=== PATIENT | female | born 1950 | race African-American/Black ===

== ENCOUNTER 2025-04-23 20:28 | Emergency (ER) | payer OTHER ==
[2025-04-23 21:42] LABS: Absolute Lymphocytes (CBC) 1.6 K/uL (0.7-4.9); Hematocrit 38.5 % (36.0-45.0); Hemoglobin 13.2 g/dL (12.0-15.0); MCH 31.4 pg (27.0-35.0); MCHC 34.2 g/dL (32.0-36.0); MCV 91.9 fL (80-100); MPV 8.4 fL (7.6-11.3); Nucleated RBC Absolute Count 0.0 (0-0); Nucleated Red Blood Cells % 0.1 % (0-0); RBC Red Blood Cell Count 4.19 M/uL (3.86-4.86); White Blood Count 3.40 thou/uL (4.3-10.9)
--- NOTE | 2025-04-23 21:56 | RAD REPORT ---
EXAM: CT brain without contrast HISTORY: Headache, vertigo COMPARISON: None TECHNIQUE: Multiple contiguous axial images were obtained and a CT of the brain without contrast. Sag ittal and coronal reformats were performed. One or more of the following dose reduction techniques were used: Automated exposure control, adjust ment of the mA and/or kV according to patient size, and/or iterative reconstruction. FINDINGS: No evidence of hydrocephalus, intracranial hemorrhage, or extra-axial fluid collection. Mild brain atrophy with mild periventricular and deep white matter chronic microvascular ischemic ch anges present. No evidence of midline shift or areas of brain edema. The calvarium is intact. Mild fluid is seen in the inferior left mastoid air cell. Paranasal sinuses and mastoids are otherwise clear. IMPRESSION: No evidence of acute intracranial abnormality.
[2025-04-23 22:04] LABS: ALT/SGPT 20.0 U/L (13-56); AST/SGOT 16.0 U/L (15-37); Albumin 3.3 g/dL (3.4-5.0); Albumin/Globulin Ratio 0.9 (1.1-1.8); Alkaline Phosphatase 106.0 U/L (45-117); Anion Gap 7.7 mEq/L (5.0-15.0); BUN Blood Urea Nitrogen 14.0 mg/dL (7-18); Globulin 3.6 g/dL (2.3-3.5); Glucose Level 159.0 mg/dL (74-106); Potassium 3.7 mEq/L (3.5-5.1)
--- NOTE | 2025-04-23 22:23 | EDPHYS ---
Physician Documentation [facility] Name: Elle Harris Age: 74 yrs Sex: Female : 1950 Arrival Date: 04/23/2025 Time: 20:28 Bed 14 Private MD: ED Physician Vik Correa HPI: 04/23 21:56 This 74 yrs old Black Female presents to ER via Wheelchair with complaints of Eye sp4 Problem. 23:27 74-year-old female presents with worsening vertigo. Patient states that she has sp4 developed moderate to severe vertigo in September 2024. Since then she has had complete workup by her neurologist including MRI of the brain that did not reveal any anomalies. Patient has history of relapsing remitting multiple sclerosis for which she is following with her neurologist. Patient takes meclizine 25 mg as needed every 8 hours. Patient states on meclizine wears vertigo becomes worse. Patient presents from the [facility] today for further evaluation of worsening vertigo. Patient states vertigo much worse when she changes positions.. Historical: - Allergies: 20:51 Percocet; kd3 20:51 codeine sulfate; kd3 20:51 Iodine; kd3 20:51 NSAIDS; kd3 20:51 fentanyl; kd3 20:51 Versed; kd3 20:51 anestesia- all except propofol; kd3 - Home Meds: 20:51 amlodipine 2.5 mg tablet 1 tab twice a day [Active]; Vitamin D Oral daily [Active]; kd3 Zioptan (PF) 0.0015 % ophthalmic (eye) Dropperette 1 drop daily [Active]; Cosopt 22.3-6.8 mg/mL Opht drops 1 drop daily [Active]; Vitamin B-6 Oral daily [Active]; Vitamin B-12 oral daily [Active]; Zinc Sulfate Oral daily [Active]; - Immunization history:: Adult Immunizations up to date. - Infectious Disease History:: Denies. - Social history:: Smoking status: Patient denies any tobacco usage or history of. - Family history:: not pertinent. ROS: 23:27 Constitutional: Negative for fever, chills, and weight loss, positive worsening sp4 positional vertigo 23:27 All other systems are negative, Exam: 23:27 Constitutional: This is a well developed, well nourished patient who is awake, alert, sp4 and in no acute distress. Head/Face: Normocephalic, atraumatic. Eyes: Pupils equal round and reactive to light, extra-ocular motions intact. Lids and lashes normal. Conjunctiva and sclera are not injected. Cornea within normal limits. Periorbital areas with no swelling, redness, or edema. Mild horizontal nystagmus, bilateral funduscopy reveals no signs of acute papilledema. ENT: Nares patent. No nasal discharge, no septal abnormalities noted. Tympanic membranes are normal and external auditory canals are clear. Oropharynx with no redness, swelling, or masses, exudates, or evidence of obstruction, uvula midline. Mucous membranes moist. Neck: Trachea midline, no thyromegaly or masses palpated, and no cervical lymphadenopathy. Supple, full range of motion without nuchal rigidity, or vertebral point tenderness. Chest/axilla: Normal chest wall appearance and motion. Nontender with no deformity. No lesions are appreciated. Cardiovascular: Regular rate and rhythm with a normal S1 and S2. No gallops, murmurs, or rubs. No pulse deficits. Respiratory: Lungs have equal breath sounds bilaterally, clear to auscultation and percussion. No rales, rhonchi or wheezes noted. No increased work of breathing, no retractions or nasal flaring. Abdomen/GI: Soft, with normal bowel sounds. No distension or tympany. No guarding or rebound. No evidence of tenderness throughout. Back: No spinal tenderness. No costovertebral tenderness. Skin: Warm, dry with normal turgor. Normal color with no rashes, no lesions, and no evidence of cellulitis. MS/ Extremity: Pulses equal, no cyanosis. Neurovascular intact. Full, normal range of motion. Neuro: Awake and alert, GCS 15, oriented to person, place, time, and situation. Cranial nerves II-XII grossly intact. Motor strength 5/5 in all extremities. Sensory grossly intact. Psych: Awake, alert, with orientation to person, place and time. Behavior, mood, and affect are within normal limits Vital Signs: 20:40 BP 152 / 70; Pulse 67; Resp 18; Temp 98.2(O); Pulse Ox 100% on R/A; Weight 56.7 kg; kd3 Height 5 ft. 1 in. ; Pain 0/10; 20:50 BP 166 / 77; kd3 21:02 BP 137 / 63; kd3 21:24 BP 161 / 83; Pulse 69; Resp 18; Pulse Ox 100% ; rg5 22:00 BP 125 / 74; Pulse 56; Resp 18; Pulse Ox 100% ; rg5 20:40 Body Mass Index 23.62 (56.70 kg, 154.94 cm) kd3 20:40 Pain Scale: Adult kd3 [place] Coma Score: 23:27 Eye Response: spontaneous(4). Motor Response: obeys commands(6). Verbal Response: sp4 oriented(5). Total: 15. MDM: 20:32 Medical Screening Exam initiated kb 23:27 ED course: EXAM: CT brain without contrast HISTORY: Headache, vertigo COMPARISON: None sp4 TECHNIQUE: Multiple contiguous axial images were obtained and a CT of the brain without contrast. Sagittal and coronal reformats were performed. One or more of the following dose reduction techniques were used: Automated exposure control, adjustment of the mA and/or kV according to patient size, and/or iterative reconstruction. FINDINGS: No evidence of hydrocephalus, intracranial hemorrhage, or extra-axial fluid collection. Mild brain atrophy with mild periventricular and deep white matter chronic microvascular ischemic changes present. No evidence of midline shift or areas of brain edema. The calvarium is intact. Mild fluid is seen in the inferior left mastoid air cell. Paranasal sinuses and mastoids are otherwise clear. IMPRESSION: No evidence of acute intracranial abnormality. . 23:27 Differential diagnosis: Ultraviolet keratitis in Peripheral vertigo, central vertigo, sp4 multiple sclerosis exacerbation. Data reviewed: vital signs, nurses notes, lab test result(s), radiologic studies, CT scan. Consideration of Admission/Observation Escalation of care including admission/observation considered. ED course: Based on evaluation patient has no acute neurologic deficits. Patient has mild left-sided weakness and numbness from prior relapsing remitting episode of multiple sclerosis. No signs of acute CVA on exam today. Mild horizontal nystagmus. Patient was offered multiple medications including meclizine, Valium, Benadryl, ondansetron, Reglan and Phenergan. Patient states she has allergies to multiple medications she declined any medication today. At this time it is safe for patient to be discharged. She was advised to have close follow-up with her neurologist and consider follow-up with ENT as well , patient advised to seek evaluation for Mnire's disease since this is 1 possibility behind worsening vertigo.. 04/23 20:51 Order name: CBC with Diff; Complete Time: 21:57 sp4 04/23 20:51 Order name: CMP; Complete Time: 22:15 sp4 04/23 20:51 Order name: CT Head Brain wo Cont; Complete Time: 22:15 sp4 04/23 20:51 Order name: IV Saline Lock; Complete Time: 21:29 sp4 04/23 20:51 Order name: Labs collected and sent; Complete Time: 21:29 sp4 Administered Medications: No medications were administered Disposition Summary: 04/23/25 22:23 Discharge Ordered Notes: We recommend close follow up with your Neurologist Location: Home sp4 Problem: new sp4 Symptoms: have improved sp4 Condition: Stable sp4 Diagnosis - Exacerbation of chronic vertigo, positional vertigo sp4 Followup: sp4 - With: Private Physician - When: 5 - 6 days - Reason: Recheck today's complaints Discharge Instructions: - Discharge Summary Sheet sp4 - Vertigo, [id number] sp4 Forms: - Patient Portal Instructions sp4 Signatures: Dispatcher [employer] Hui Sepulveda FNP-C FNP-Candi Francois RN RN kd3 Vik Correa MD MD sp4
--- NOTE | 2025-04-23 22:23 | ER ---
Nurse's Notes [facility] Name: Elle Harris Age: 74 yrs Sex: Female : 1950 Arrival Date: 04/23/2025 Time: 20:28 Bed 14 Private MD: Diagnosis: Exacerbation of chronic vertigo, positional vertigo Presentation: 04/23 20:40 Chief complaint: Patient states: I have vertigo, and i was in rehab for it. I was kd3 discharged and when home and had been fine. Saturday night the vertigo started again after i had some ear pain. The ear pain has resolved but the vertigo is very bad. Ebola Screen: No symptoms or risks identified at this time. Initial Sepsis Screen: Does the patient meet any 2 criteria? No. Patient's initial sepsis screen is negative. Does the patient have a suspected source of infection? No. Patient's initial sepsis screen is negative. Risk Assessment: Do you want to hurt yourself or someone else? Patient reports no desire to harm self or others. Onset of symptoms was April 20, 2025. 20:40 Method Of Arrival: Wheelchair kd3 20:50 Acuity: JINA 3 kd3 20:51 Coronavirus screen: Vaccine status: Patient reports receiving the 2nd dose of the covid kd3 vaccine. Triage Assessment: 20:51 General: Appears in no apparent distress. Behavior is calm, cooperative. Pain: Denies kd3 pain. Neuro: Level of Consciousness is awake, alert, obeys commands, Oriented to person, place, time, situation. Historical: - Allergies: 20:51 Percocet; kd3 20:51 codeine sulfate; kd3 20:51 Iodine; kd3 20:51 NSAIDS; kd3 20:51 fentanyl; kd3 20:51 Versed; kd3 20:51 anestesia- all except propofol; kd3 - Home Meds: 20:51 amlodipine 2.5 mg tablet 1 tab twice a day [Active]; Vitamin D Oral daily [Active]; kd3 Zioptan (PF) 0.0015 % ophthalmic (eye) Dropperette 1 drop daily [Active]; Cosopt 22.3-6.8 mg/mL Opht drops 1 drop daily [Active]; Vitamin B-6 Oral daily [Active]; Vitamin B-12 oral daily [Active]; Zinc Sulfate Oral daily [Active]; - Immunization history:: Adult Immunizations up to date. - Infectious Disease History:: Denies. - Social history:: Smoking status: Patient denies any tobacco usage or history of. - Family history:: not pertinent. Screenin:25 [facility] ED Fall Risk Assessment (Adult) History of falling in the last 3 months, rg5 including since admission No falls in past 3 months (0 pts) Confusion or Disorientation No (0 pts) Intoxicated or Sedated No (0 pts) Impaired Gait Yes (1 pt) Mobility Assist Device Used Yes (1 pt) Altered Elimination No (0 pt) Score/Fall Risk Level 3 or more points = High Risk Oriented to surroundings, Maintained a safe environment, Hourly rounding (assess needs \T\ fall precautionary measures) done, Used ambulatory aids as needed (educated on \T\ assisted with). Abuse screen: Denies threats or abuse. Nutritional screening: No deficits noted. Tuberculosis screening: No symptoms or risk factors identified. Assessment: 21:25 General: Appears in no apparent distress. Behavior is calm, cooperative, appropriate rg5 for age. Pain: Denies pain. Neuro: Reports dizziness. Cardiovascular: Denies chest pain, Patient's skin is warm and dry. Respiratory: Airway is patent Trachea midline Respiratory effort is even, unlabored. GI: Abdomen is round non-distended. : No signs and/or symptoms were reported regarding the genitourinary system. EENT: Reports ringing. Derm: Skin is intact, Skin is dry, Skin is normal. Musculoskeletal: Circulation, motion, and sensation intact. Range of motion: intact in all extremities. 22:14 Reassessment: No changes from previously documented assessment. Patient and/or family rg5 updated on plan of care and expected duration. Pain level reassessed. Patient is alert, oriented x 3, equal unlabored respirations, skin warm/dry/pink. Vital Signs: 20:40 BP 152 / 70; Pulse 67; Resp 18; Temp 98.2(O); Pulse Ox 100% on R/A; Weight 56.7 kg; kd3 Height 5 ft. 1 in. ; Pain 0/10; 20:50 BP 166 / 77; kd3 21:02 BP 137 / 63; kd3 21:24 BP 161 / 83; Pulse 69; Resp 18; Pulse Ox 100% ; rg5 22:00 BP 125 / 74; Pulse 56; Resp 18; Pulse Ox 100% ; rg5 20:40 Body Mass Index 23.62 (56.70 kg, 154.94 cm) kd3 20:40 Pain Scale: Adult kd3 [place] Coma Score: 23:27 Eye Response: spontaneous(4). Motor Response: obeys commands(6). Verbal Response: sp4 oriented(5). Total: 15. ED Course: 20:31 Patient arrived in ED. al6 20:32 Hui Balbuena FNP-C is [facility]. kb 20:32 Vik Correa MD is Attending Physician. kb 20:51 Triage completed. kd3 20:51 Arm band placed on right wrist. kd3 21:03 Vasquez Bonilla RN is Primary Nurse. rg5 21:25 Patient has correct armband on for positive identification. Bed in low position. Call rg5 light in reach. Side rails up X 1. Door closed. Warm blanket given. 21:25 No provider procedures requiring assistance completed. Inserted saline lock: 20 gauge rg5 in right antecubital area, using aseptic technique. Blood collected. Flushed with 10 mL NS Patient maintains SpO2 saturation greater than 95% on room air. 21:29 Inserted saline lock: 20 gauge in right antecubital area, using aseptic technique. ts3 Blood collected. Flushed with 10 mL NS. 21:29 Initial lab(s) drawn, by record label intern, sent to lab. ts3 21:39 CT Head Brain wo Cont In Process Unspecified. EDMS 22:45 Provided Education on: post er care. rg5 Administered Medications: No medications were administered Medication: 21:25 VIS not applicable for this client. rg5 Outcome: 22:23 Discharge ordered by . sp4 22:45 Discharged to home via wheelchair, rg5 22:45 Condition: stable 22:45 Discharge instructions given to patient, 22:46 Patient left the ED. rg5 Signatures: Dispatcher [employer] EDMS Hui Balbuena FNP-C FNP-Candi Francois RN RN kd3 Vik Correa MD MD sp4 Vasquez Bonilla RN RN rg5 Angelique Navarrete al6 Silvia Luz ts3
[2025-04-23 23:28] VITALS: O2SAT 100
[2025-04-23 23:29] VITALS: BP 125/74
== END 2025-04-23 22:46 | disposition home or self-care (01) ==
LOC: ER 20:28
DX: H81.10 Benign paroxysmal vertigo, unspecified ear (principal)
CPT/HCPCS: 36415; 70450; 80053; 85025; 99283